=== PATIENT | female | born 1985 | race African-American/Black ===

== ENCOUNTER 2017-01-18 20:41 | Emergency (ER) | payer OTHER ==
[2017-01-18 21:20] VITALS: BP 146/74; PULSE 94; TEMP 99.8; BMI 60.2
[2017-01-18] MEDS ORDERED: CEPHALEXIN MONOHYDRATE 500 MG CAPSULE (UD) PO ONE (22:58)
[2017-01-18] MEDS ORDERED: SULFAMETHOXAZOLE/TRIMETHOPRIM 800MG/160MG D.S. TABLET PO ONE (22:58)
[2017-01-18] MEDS ORDERED: IBUPROFEN 600 MG TABLET (FP) PO ONE ×2 (22:58→23:15)
--- NOTE | 2017-01-18 23:02 | PDOC ---
[id number]: No Limitations - History of Present Illness Initial Comments: 01/18/17 23:11 The patient is a 31 year old female, with a significant past medical history obesity, DVT (RLE, April 2016) and cholecystitis, who presents to the emergency department with a worsening abscess to the left lower back for the past 5 days. The patient reports fever and chills today. A coworker took her temperature at work today, it was found to be 101. The patient reports taking Tylenol for the fever, with some relief. The patient denies nausea or vomiting. Allergies: None reported. Past Surgical History: Cholecystectomy. Social History: Non smoker. Denies alcohol or drug use. PCP: Dr. Bhavya Hernadez <Rosemary Colon - Last Filed: 01/18/17 23:12> - General History Source: Patient Exam Limitations: No Limitations <Hany Doran - Last Filed: 01/19/17 11:47> - General Chief Complaint: Wound Stated Complaint: ABCESS BOIL/FEVER Time Seen by Provider: 01/18/17 21:16 Past History <Rosemary Colon - Last Filed: 01/18/17 23:12> - Past Medical History Anemia: Yes Suicide Attempt (Hx): No - Surgical History Cholecystectomy: Yes - Immunization History Td Vaccination: Yes - Psycho/Social/Smoking Cessation Hx Anxiety: No Suicidal Ideation: No Smoking Status: No Smoking History: Never smoked Have you smoked in the past 12 months: No Number of Cigarettes Smoked Daily: 0 Information on smoking cessation initiated: No Hx Alcohol Use: No Drug/Substance Use Hx: No Substance Use Type: None <Hany Doran - Last Filed: 01/19/17 11:47> - Past Medical History Allergies/Adverse Reactions: Allergies Allergy/AdvReac Type Severity Reaction Status Date / Time No Known Allergies Allergy Verified 01/18/17 21:20 Home Medications: Ambulatory Orders Cephalexin [Keflex] 500 mg PO Q6H #28 capsule 01/18/17 Sulfamethoxazole/Trimethoprim [Bactrim Ds -] 1 tab PO BID #14 tablet 01/18/17 Review of Systems - Review of Systems Able to Perform ROS?: Yes Comments:: 01/18/17 23:10 GENERAL/CONSTITUTIONAL: +Fever, chills. No weakness. HEAD, EYES, EARS, NOSE AND THROAT: No change in vision. No ear pain or discharge. No sore throat. CARDIOVASCULAR: No chest pain or shortness of breath. RESPIRATORY: No cough, wheezing, or hemoptysis. GASTROINTESTINAL: No nausea, vomiting, diarrhea or constipation. GENITOURINARY: No dysuria, frequency, or change in urination. MUSCULOSKELETAL: No joint or muscle swelling or pain. No neck or back pain. SKIN: +Abscess to the left lower back. No rash. NEUROLOGIC: No headache, vertigo, loss of consciousness, or change in strength/ sensation. ENDOCRINE: No increased thirst. No abnormal weight change. HEMATOLOGIC/LYMPHATIC: No anemia, easy bleeding, or history of blood clots. ALLERGIC/IMMUNOLOGIC: No hives or skin allergy. <Rosemary Colon - Last Filed: 01/18/17 23:12> *Physical Exam - Vital Signs Last Vital Signs Temp Pulse Resp BP Pulse Ox 99.8 F H 94 H 20 146/74 99 01/18/17 21:15 01/18/17 21:15 01/18/17 21:15 01/18/17 21:15 01/18/17 21:15 - Physical Exam Comments: 01/18/17 23:09 GENERAL: Obese. Awake, alert, and fully oriented, in no acute distress. HEAD: No signs of trauma. EYES: PERRLA, EOMI, sclera anicteric, conjunctiva clear. ENT: Auricles normal inspection, hearing grossly normal, nares patent, oropharynx clear without exudates. Moist mucosa. NECK: Normal ROM, supple, no lymphadenopathy, JVD, or masses. LUNGS: Breath sounds equal, clear to auscultation bilaterally. No wheezes, and no crackles. HEART: Regular rate and rhythm, normal S1 and S2, no murmurs, rubs or gallops. ABDOMEN: Soft, nontender, normoactive bowel sounds. No guarding, no rebound. No masses. EXTREMITIES: Normal range of motion, no edema. No clubbing or cyanosis. No cords , erythema, or tenderness. NEUROLOGICAL: Cranial nerves II through XII intact. Normal speech, normal gait. SKIN: Left lower back, 3cm x 3cm area of induration and fluctuance, tender to palpation. No overlying erythema. Warm, dry, normal turgor, no rashes noted. <Rosemary Colon - Last Filed: 01/18/17 23:12> - Vital Signs Last Vital Signs Temp Pulse Resp BP Pulse Ox 99.8 F H 94 H 20 146/74 99 01/18/17 21:15 01/18/17 21:15 01/18/17 21:15 01/18/17 21:15 01/18/17 21:15 <Hany Doran - Last Filed: 01/19/17 11:47> Procedures - Incision and Drainage I&D Site: Left: Other (Back) Anesthesia: 1% Lidocaine Volume(ml): 2 Blade Size: 11 Attempts: 1 Iodinated Packin/2 in Complications: none Progress: 01/19/17 11:46 Wound site cleansed with alcohol prior to incision. <Hany Doran - Last Filed: 01/19/17 11:47> Medical Decision Making - Medical Decision Making 01/18/17 23:02 A portion of this note was documented by scribe services under my direction. I have reviewed the details of the note, within reason, and agree with the documentation with the following case summary and management plan written by me. Patient treated in the ED. Nursing notes are reviewed and incorporated into the medical decision-making. Vital signs reviewed. Peripheral IV access obtained by the nurse, laboratory studies are drawn and sent, reviewed and interpreted by myself. Vital Signs Temp Pulse Resp BP Pulse Ox 99.8 F H 94 H 20 146/74 99 01/18/17 21:15 01/18/17 21:15 01/18/17 21:15 01/18/17 21:15 01/18/17 21:15 31-year-old female with history of obesity, cholecystectomy presents with left lower back abscess. Patient noticed in last several days of a small bump that is increasingly more painful. Today, should a temperature 100.1 degrees. Came into the ED for evaluation. With patient's consent, 1% lidocaine without epinephrine was infused locally. Proximal to 2 mL were utilized. With an 11 blade, a 1 certainly decision was made with approximately 4 mL of purulent drainage. Wound was packed with iodine packing. Cover with gauze. Given the fevers, we'll initiate Bactrim and Keflex. I instructed the patient to return to the ER in 2 days for wound check. Return precautions given. I checked the patient to leave the packing in. Patient verbalized understanding and agrees with plan. I discussed the physical exam findings, ancillary test results and final diagnoses with the patient. I answered all of the patient's questions. The patient was satisfied with the care received and felt comfortable with the discharge plan and treatment plan. The patient will call their primary care physician within 24 hours to arrange follow-up and will return to the Emergency Department with any new, persistant or worsening symptoms. <Hany Doran - Last Filed: 01/19/17 11:47> *DC/Admit/Observation/Transfer - Attestations Scribe Attestion: 01/18/17 23:08 Documentation prepared by Rosemary Colon, acting as biomedical technician for Hany Doran MD. <Rosemary Colon - Last Filed: 01/18/17 23:12> - Discharge Dispostion Admit: No <Hany oDran - Last Filed: 01/19/17 11:47> Diagnosis at time of Disposition: Abscess - Discharge Dispostion Disposition: HOME Condition at time of disposition: Good - Prescriptions Prescriptions: Sulfamethoxazole/Trimethoprim [Bactrim Ds -] 1 tab PO BID #14 tablet Cephalexin [Keflex] 500 mg PO Q6H #28 capsule - Referrals Referrals: Bhavya Hernadez MD [Primary Care Provider] - - Patient Instructions Printed Discharge Instructions: DI for Skin Abscess Additional Instructions: Take both antibiotics (keflex every 6 hours and bactrim every 12 hours) for the next week. Take 600 mg ibuprofen every 6 hours as needed for pain. Please return to the ER in 2 days for wound check. You may come into the ER and show them these papers.
[2017-01-18] MEDS ORDERED: CEPHALEXIN MONOHYDRATE 250 MG CAPSULE (FP) ONE (23:16)
[2017-01-18] MEDS ORDERED: SULFAMETHOXAZOLE/TRIMETHOPRIM 800MG/160MG D.S. TABLET ONE (23:17)
== END 2017-01-18 23:20 | disposition home or self-care (01) ==
LOC: JER 20:41 → JERFT 20:41 → SUPCPDRO 20:41 → JER 23:20
DX: L02.212 Cutaneous abscess of back [any part, except buttock and flank] (principal); Z86.718 Personal history of other venous thrombosis and embolism; E66.01 Morbid (severe) obesity due to excess calories; Z68.44 Body mass index [BMI] 60.0-69.9, adult
CPT/HCPCS: 87070; 87186; 87205; 99282-25

== ENCOUNTER 2017-01-20 14:21 | Emergency (ER) | payer OTHER ==
[2017-01-20 14:59] VITALS: BP 132/70; PULSE 75; TEMP 97.3; BMI 59.9
--- NOTE | 2017-01-20 15:29 | PDOC ---
Suture Removal/Wound Check HPI - History of Present Illness Chief Complaint: Revisit,Wound Recheck Stated Complaint: WOUND CHECK Time Seen by Provider: 01/20/17 14:59 History Source: Yes: Patient Exam Limitations: Yes: No Limitations Treated at: [facility] Date of Last ED visit: 01/18/17 - Previous ED Treatment Type of procedure performed on last visit: Yes: I&D of Abscess Tetanus Immunization: Yes: Up to Date Antibiotics Prescribed: Yes Past History - Past Medical History Allergies/Adverse Reactions: Allergies No Known Allergies Allergy (Verified 01/20/17 14:55) Home Medications: Ambulatory Orders Cephalexin [Keflex] 500 mg PO Q6H #28 capsule 01/18/17 Sulfamethoxazole/Trimethoprim [Bactrim Ds -] 1 tab PO BID #14 tablet 01/18/17 Oxycodone HCl/Acetaminophen [Percocet 5-325 mg Tablet] 1 - 2 tab PO Q6H PRN #10 tab MDD 6 01/20/17 General: Yes: other (obesity) - Family History Significant Family History: Yes: diabetes, hypertension - Reproductive History LMP: 03/02/12 - Social History Smoking History: No Smoking Status: Never smoked Number of Ciarettes Per Day: 0 Suture Removal/Wound Check PE - Physical Exam Laceration/Wound Check Symptoms: reports: Pain (5/10) Pain Intensity: 5 Current Severity Level: Moderate Maximum Severity Level: Severe Location of Laceration/Wound: right: Back (middle of back with packing in place s/p abscess drained) Comments: 01/20/17 15:25 middle of back with packing in place s/p abscess , draining small amount yellow pus . no redness or surrounding fluctuance. mild surrounding induration. 01/20/17 15:30 Medical Decision Making - Medical Decision Making 01/20/17 15:25 cc: wound check I&D abscess 2 days ago well healing , yellow scant drainage noted will leave packing in and have pt follow up in 2 days with PMD or ER to remove continue antibioitics and will prescribe percocet for pain severe at night states pat. pt agrees with the plan all questions asked and answered at discharge. 01/20/17 15:31 *DC/Admit/Observation/Transfer Diagnosis at time of Disposition: Visit for wound check - Prescriptions Prescriptions: Oxycodone HCl/Acetaminophen [Percocet 5-325 mg Tablet] 1 - 2 tab PO Q6H PRN #10 tab MDD 6 PRN Reason: Severe Pain - Referrals Referrals: Bhavya Hernadez MD [Primary Care Provider] - - Patient Instructions Additional Instructions: follow up with in 2 days for packing removal or return to ER continue antibiotics take percocet for severe pain take motrin for mild to moderate pain as needed
== END 2017-01-20 15:41 | disposition home or self-care (01) ==
LOC: JERFT 14:21
DX: Z09 Encounter for follow-up examination after completed treatment for conditions other than malignant neoplasm (principal)
CPT/HCPCS: 99281-25

== ENCOUNTER 2017-05-23 16:27 | Inpatient (IN) | payer OTHER ==
[2017-05-23 16:33] VITALS: BMI 59.5
--- NOTE | 2017-05-23 16:43 | PDOC ---
History of Present Illness - History of Present Illness Initial Comments: 05/23/17 18:03 Patient is a 31 year old female with significant medical hx of obesity and DVT ( RLE) who is presenting to the ED with right lower extremity swelling and pain and one day of shortness of breath. Patient states she's been having several weeks of intermittent swelling and pain to her right lower extremity from her ankle up to her knee. The patient also complains of shortness of breath that began at 4 am today. Her shortness of breath worsens with exertion, specifically walking short distances. The patient also endorses chills and headache that started today. Denies chest pain, lightheadedness, weakness, nausea, vomiting, diarrhea, or diaphoresis. Patient states she stopped seeing her PCP and taking her lovenox for DVT in 2015. Allergies: NKDA Past Surgical History: Cholecystectomy Social History: Denies tobacco, alcohol or drug use. PCP: Bhavya Hernadez MD (hasn't seen PCP since 07/2016) <Cori Solorio - Last Filed: 05/23/17 23:40> <Mckinley Lanier - Last Filed: 05/24/17 00:30> - General Chief Complaint: Shortness of Breath Stated Complaint: LEG PAIN,SHORTNESS OF BREATH Time Seen by Provider: 05/23/17 16:42 Past History <Cori Solorio - Last Filed: 05/23/17 23:40> - Past Medical History Anemia: Yes Suicide Attempt (Hx): No Other medical history: DVT - Surgical History Cholecystectomy: Yes - Immunization History Td Vaccination: Yes - Psycho/Social/Smoking Cessation Hx Anxiety: No Suicidal Ideation: No Smoking Status: No Smoking History: Never smoked Have you smoked in the past 12 months: No Number of Cigarettes Smoked Daily: 0 Information on smoking cessation initiated: No Hx Alcohol Use: No Drug/Substance Use Hx: No Substance Use Type: None <Mckinley Lanier - Last Filed: 05/24/17 00:30> - Past Medical History Allergies/Adverse Reactions: Allergies Allergy/AdvReac Type Severity Reaction Status Date / Time No Known Allergies Allergy Verified 05/23/17 16:32 Home Medications: Ambulatory Orders NK [No Known Home Medication] 05/23/17 Review of Systems - Review of Systems Comments:: 05/23/17 18:11 CONSTITUTIONAL: Chills; No fever, no fatigue EYES: No visual changes ENT: No ear pain, no sore throat CARDIOVASCULAR: No chest pain, no palpitations RESPIRATORY: SOB; No cough GI: No abdominal pain, no nausea, no vomiting, no constipation, no diarrhea GENITOURINARY: No dysuria, no frequency, no hematuria MUSKULOSKELETAL: RLE pain and swelling; No backpain, no joint pain, no myalgias SKIN: No rash NEURO: Headache <Cori Solorio - Last Filed: 05/23/17 23:40> *Physical Exam - Vital Signs Last Vital Signs Temp Pulse Resp BP Pulse Ox 100 F H 120 H 19 112/62 97 05/23/17 16:30 05/23/17 16:30 05/23/17 16:30 05/23/17 16:30 05/23/17 16:30 - Physical Exam Comments: 05/23/17 18:12 CONSTITUTIONAL: Morbidly obese; in no apparent distress HEAD: Normocephalic; atraumatic EYES: PERRL; EOM intact ENMT: External appears normal; normal oropharynx NECK: Supple; non-tender; no cervical lymphadenopathy CARD: Tachycardic. Normal S1, S2; no murmurs, rubs, or gallops RESP: Normal chest excursion with respiration; breath sounds clear and equal bilaterally; no wheezes, rhonchi, or rales ABD: Soft, non-distended; non-tender; no palpable organomegaly, no palpable hernias EXT: RLE +1 pitting edema; RLE significantly larger than the left by 30%; Normal ROM in all four extremities; non-tender to palpation; distal pulses intact SKIN: Warm, dry, no rash NEURO: No focal neurological deficiencies. <Cori Solorio - Last Filed: 05/23/17 23:40> - Vital Signs Last Vital Signs Temp Pulse Resp BP Pulse Ox 100 F H 120 H 19 112/62 97 05/23/17 16:30 05/23/17 16:30 05/23/17 16:30 05/23/17 16:30 05/23/17 16:30 <Mckinley Lanier - Last Filed: 05/24/17 00:30> ED Treatment Course - LABORATORY CBC & Chemistry Diagram: 05/23/17 17:00 05/23/17 17:00 - ADDITIONAL ORDERS Additional order review: Laboratory Results 05/23/17 05/23/17 05/23/17 17:00 17:00 17:00 INR 1.20 H D-Dimer 385 H Sodium 140 Potassium 3.9 Chloride 102 Carbon Dioxide 28 Anion Gap 10 BUN 11 Creatinine 1.2 H D Creat Clearance w eGFR 52.75 Random Glucose 90 Calcium 8.6 Total Bilirubin 0.5 D AST 14 L D ALT 15 Alkaline Phosphatase 55 Creatine Kinase 100 Troponin I < 0.02 Total Protein 8.1 Albumin 3.3 L Serum , Qual Negative 05/23/17 17:00 RBC 4.22 MCV 81.8 MCHC 32.0 RDW 16.1 H MPV 8.2 Neutrophils % 76.0 D Lymphocytes % 15.0 D Monocytes % 4.7 Eosinophils % 3.7 Basophils % 0.6 - RADIOLOGY Radiograph Interpretation: 05/23/17 21:[address] Impression: No definite CT evidence of pulmonary embolism is identified. Reported By: Derrell Ybarra MD Vascular Study Impression: No DVT is identified involving the right leg. Please see discussion. Reported By: Derrell Ybarra MD - Medications Given in the ED: ED Medications Discontinued Medications Generic Name Dose Route Start Last Admin Trade Name Freq PRN Reason Stop Dose Admin Morphine Sulfate 4 mg 05/23/17 17:47 05/23/17 17:48 Morphine Injection - IVPUSH 05/23/17 17:48 4 mg ONCE ONE Administration <Cori Solorio - Last Filed: 05/23/17 23:40> - LABORATORY CBC & Chemistry Diagram: 05/23/17 17:00 05/23/17 17:00 <Mckinley Lanier - Last Filed: 05/24/17 00:30> Medical Decision Making - Medical Decision Making 05/23/17 17:05 pt with hx/o dvt not on anti-coagulation presents with sob, leg pain/edema, and tachycardia. high index of suspicion for PE. will administer lovenox-150mg sq. will obtain US doppler/ CT chest. [facility] [place] admission. 05/24/17 00:27 Patient reassessed. Patient is resting comfortably with a decreased heart rate of 102. Right lower extremity Doppler ultrasound shows no evidence of acute DVT. Patient's d-dimer is noted to be elevated at 385. CT of chest with IV contrast reveals no evidence of pulmonary embolism within the main pulmonary arteries all within the subsegmental pulmonary arteries. Given that patient is at high risk for PE, she received Lovenox immediately upon arrival. At this time , I believe patient will require admission to telemetry further evaluation and possible VQ scan to determine presence or absence of pulmonary emboli distal to the subsegmental arteries. Patient also may require a cardiac evaluation. Case discussed with Dr. Ann. He agrees with the plan of care. <Mckinley Lanier - Last Filed: 05/24/17 00:30> *DC/Admit/Observation/Transfer - Attestations Scribe Attestion: 05/23/17 18:14 Documentation prepared by Cori Solorio, acting as medical record technician for Mckinley Lanier MD. <Cori Solorio - Last Filed: 05/23/17 23:40> - Discharge Dispostion Admit: Yes <Mckinley Lanier - Last Filed: 05/24/17 00:30> Diagnosis at time of Disposition: Sinus tachycardia Dyspnea Qualifiers: Dyspnea type: unspecified Qualified Code(s): R06.00 - Dyspnea, unspecified - Discharge Dispostion Condition at time of disposition: Fair - Referrals Referrals: Bhavya Hrenadez MD [Primary Care Provider] -
[2017-05-23] MEDS ORDERED: ENOXAPARIN NA (PORCINE) 100 MG/1 ML DISP.SYRIN SQ ONE (17:05)
[2017-05-23] MEDS ORDERED: ENOXAPARIN NA (PORCINE) 60 MG/0.6 ML DISP.SYRIN SQ ONE (17:06)
[2017-05-23 17:10] LABS: BASOPHIL 0.6 % (0-2.0); EOSINOPHIL 3.7 % (0-4.5); MCH 26.2 pg (25.7-33.7); MEAN CELL VOLUME 81.8 fl (80-96); MEAN PLT VOLUME 8.2 fl (7.5-11.1); PLATELET COUNT 333 K/MM3 (134-434); RDW 16.1 % (11.6-15.6); WHITE BLOOD COUNT 8.8 K/mm3 (4.0-10.0)
[2017-05-23] MEDS ORDERED: ENOXAPARIN NA (PORCINE) 120 MG/0.8 ML DISP.SYRIN SQ SCH (17:15)
[2017-05-23 17:20] LABS: INR 1.2 (0.82-1.09); PROTHROMBIN TIME (PATIENT) 13.3 SEC (9.98-11.88)
[2017-05-23 17:37] LABS: ALBUMIN 3.3 g/dl (3.4-5.0); ANION GAP 10 (8-16); CALCIUM 8.6 mg/dL (8.5-10.1); CO2 28 mmol/L (21-32); CREATININE 1.2 mg/dL (0.55-1.02); GLUCOSE,RANDOM 90 mg/dL (74-106); SGOT/AST 14 U/L (15-37)
[2017-05-23] MEDS ORDERED: morphine CARPU-JECT 4 MG/1 ML DISP.SYRIN IVPUSH ONE (17:47)
[2017-05-23] MEDS ORDERED: morphine CARPU-JECT 4 MG/1 ML DISP.SYRIN ONE (17:48)
[2017-05-23 17:50] LABS: ALK PHOS 55 U/L (45-117); BILIRUBIN,TOTAL 0.5 mg/dL (0.2-1.0); SGPT/ALT 15 U/L (12-78); TOT PROT 8.1 g/dl (6.4-8.2); TROPONIN I < 0.02 ng/ml (0.00-0.05)
[2017-05-23] MEDS ORDERED: methylPREDNISolone NA SUCC 125 MG/2 ML VIAL ONE (19:12)
[2017-05-23] MEDS ORDERED: EPINEPHrine/PF 1 MG/1 ML (1:1,000) AMPULE ONE (19:13)
[2017-05-23] MEDS ORDERED: OXYCODONE/APAP 5/325MG COMBO TABLET PO ONE (20:13)
[2017-05-23] MEDS ORDERED: OXYCODONE/APAP 5/325MG COMBO TABLET ONE (20:27)
[2017-05-24] MEDS ORDERED: ACETAMINOPHEN 325 MG TABLET (FP) PO PRN (07:32)
[2017-05-24] MEDS ORDERED: oxyCODONE HCL 5 MG TABLET PO PRN (07:32)
--- NOTE | 2017-05-24 07:37 | HP ---
Admitting History and Physical - Primary Care Physician PCP: Bhavya Hernadez - Admission Chief Complaint: pain in leg History of Present Illness: 05/23/17 18:03 Patient is a 31 year old female with significant medical hx of obesity and DVT ( RLE) who is presenting to the ED with right lower extremity swelling and pain and one day of shortness of breath. Patient states she's been having several weeks of intermittent swelling and pain to her right lower extremity from her ankle up to her knee. The patient also complains of shortness of breath that began at 4 am today. Her shortness of breath worsens with exertion, specifically walking short distances. . Denies chest pain, lightheadedness, weakness, nausea, vomiting, diarrhea, or diaphoresis. Patient states she stopped taking her lovenox for DVT in 07/2016.--says completed 3 months as advised Allergies: NKDA Past Surgical History: Cholecystectomy Social History: Denies tobacco, alcohol or drug use. Work up was -ve for pe as well as dvt Pt kept under observation as er doc was still concerned about pe pt got theraeutic dose of lovenox case was discussed with er physician last night pt seen/ examined today comfortable wants to go home denies cp/ sob/ abd pain History Source: Patient Limitations to Obtaining History: No Limitations - Past Medical History Musculoskeletal: Yes: Other (rlex pain) - Smoking History Smoking history: Never smoked Have you smoked in the past 12 months: No Aproximately how many cigarettes per day: 0 - Alcohol/Substance Use Hx Alcohol Use: No <Ismael Ann - Last Filed: 05/27/17 08:09> Home Medications <Chrystal Alexander - Last Filed: 05/24/17 09:30> <Ismael Ann - Last Filed: 05/27/17 08:09> - Allergies Allergies/Adverse Reactions: Allergies Allergy/AdvReac Type Severity Reaction Status Date / Time No Known Allergies Allergy Verified 05/23/17 16:32 - Home Medications Home Medications: Ambulatory Orders NK [No Known Home Medication] 05/23/17 Family Disease History - Family Disease History Family History: Unremarkable <Ismael Ann - Last Filed: 05/27/17 08:09> Review of Systems Unable to obtain ROS, reason: see [facility] <Ismael Ann - Last Filed: 05/27/17 08:09> Physical Examination Vital Signs: Vital Signs Temperature 98.8 F 05/23/17 20:30 Pulse Rate 92 H 05/24/17 06:56 Respiratory Rate 18 05/24/17 06:56 Blood Pressure 110/67 05/24/17 06:56 O2 Sat by Pulse Oximetry (%) 97 05/24/17 06:56 <Chrystal Alexander - Last Filed: 05/24/17 09:30> Vital Signs: Vital Signs Temperature 98.8 F 05/23/17 20:30 Pulse Rate 92 H 05/24/17 06:56 Respiratory Rate 18 05/24/17 06:56 Blood Pressure 110/67 05/24/17 06:56 O2 Sat by Pulse Oximetry (%) 97 05/24/17 06:56 Constitutional: Yes: No Distress, Calm, Obese Eyes: Yes: Conjunctiva Clear Neck: Yes: Supple Cardiovascular: Yes: Regular Rate and Rhythm Respiratory: Yes: CTA Bilaterally Gastrointestinal: Yes: Soft, Abdomen, Obese Edema: RLE: 1+ Peripheral Pulses WNL: Yes Neurological: Yes: Alert Psychiatric: Yes: Alert <Ismael Ann - Last Filed: 05/27/17 08:09> Imaging - Results Chest X-ray: Report Reviewed Cat Scan: Report Reviewed Ultrasound: Report Reviewed EKG: Report Reviewed <Ismael Ann - Last Filed: 05/27/17 08:09> Problem List - Problems (1) Morbid obesity Code(s): E66.01 - MORBID (SEVERE) OBESITY DUE TO EXCESS CALORIES (2) Dyspnea Code(s): R06.00 - DYSPNEA, UNSPECIFIED Qualifiers: Dyspnea type: unspecified Qualified Code(s): R06.00 - Dyspnea, unspecified <Ismael Ann - Last Filed: 05/27/17 08:09> Assessment/Plan work up -ve for pe I dont think v/q scan will help-- ct chest -ve await pulmonary / cardiology eval as well as hematology echo will d/c later if cleared by pulmonary Pt to follow in office in one week pt in agreement will follow <Ismael Ann - Last Filed: 05/27/17 08:09>
--- NOTE | 2017-05-24 08:11 | CON.CARD ---
Consult Consult Specialty:: Cardiology Referred by:: Dr. Ann Reason for Consultation:: SOB - History of Present Illness Chief Complaint: SOB, RLE pain History of Present Illness: 31 year old woman with a history of obesity, RLE DVT stopped taking Lovenox 2015, came to ER with c/o RLE pain and swelling for several weeks and 1 day history of SOB. Pt states that aside from her RLE pain and intermittent swelling she has been feeling well up until yesterday. She states that she thinks she has a cold, describes low grade fever, nasal congestion, and sob that started yesterday. denies any chest pain, no palpitations. no pnd, orthopnea. no lightheadedness or dizziness, no syncope or near syncope. - History Source History Provided By: Patient, Medical Record Limitations to Obtaining History: No Limitations - Past Medical History Cardio/Vascular: Yes: Deep Vein Thrombosis Musculoskeletal: Yes: Other (rlex pain) - Alcohol/Substance Use Hx Alcohol Use: No - Smoking History Smoking history: Never smoked Have you smoked in the past 12 months: No Aproximately how many cigarettes per day: 0 - Social History ADL: Independent History of Recent Travel: No Home Medications - Allergies Allergies/Adverse Reactions: Allergies Allergy/AdvReac Type Severity Reaction Status Date / Time No Known Allergies Allergy Verified 05/23/17 16:32 - Home Medications Home Medications: Ambulatory Orders NK [No Known Home Medication] 05/23/17 Family Disease History - Family Disease History Family History: Denies Review of Systems - Review of Systems Constitutional: reports: Fever. denies: No Symptoms, Chills, Diaphoresis, Lethargy, Loss of Appetite, Malaise, Night Sweats, Unintentional Wgt. Loss, Weakness, Other Eyes: denies: No Symptoms, Blind Spots, Blurred Vision, Double Vision, Eye Pain , Floaters, Photophobia, Recent Change in Vision, Other HENT: denies: No Symptoms, Difficult Swallowing, Ear Discharge, Ear Pain, Epistaxis, Gingival Bleeding, Hearing Loss, Mouth Swelling, Nasal Congestion, Ocular Prosthesis, Throat Pain, Toothache, Ringing in Ears, Other Neck: denies: No Symptoms, Decreased ROM, Lumps, Pain on Movement, Stiffness, Swollen Glands, Tenderness, Other Cardiovascular: reports: Edema, Shortness of Breath. denies: No Symptoms, Chest Pain, Palpitations, Other Respiratory: reports: Exercise Intolerance, SOB, SOB on Exertion. denies: No Symptoms, Cough, Hemoptysis, Orthopnea, PND, Snoring, Wheezing, Other Gastrointestinal: denies: No Symptoms, Abdominal Pain, Bloating, Constipation, Diarrhea, Dysphagia, Indigestion, Melena, Nausea, Rectal Bleeding, Vomiting, Vomiting Blood, Other Genitourinary: denies: No Symptoms, Burning, Discharge, Dysuria, Flank Pain, Frequency, Hematuria, Incontinence, Lesions, Menses, Pain, Testicular Mass, Testicular Pain, Testicular Swelling, Urgency, Vaginal Bleeding, Other Breasts: denies: No Symptoms Reported, See HPI, Breast Implants, Discharge from Nipple, Lumps, Pain, Skin Changes, Other Musculoskeletal: denies: No Symptoms, Back Pain, Crepitus, Decreased ROM, Extremity Pain, Joint Pain, Joint Swelling, Muscle Pain, Muscle Cramps, Muscle Weakness, Other Integumentary: denies: No Symptoms, Blister, Bruising, Change in Color, Eczema, Erythema, Incision, Lesions, Lump, Pallor, Pruritis, Rash, Wound, Other Neurological: denies: No Symptoms, Change in LOC, Change in Speech, Confusion, Dizziness, Headache, Incoordination, Numbness, Parasthesia, Pre-Existing Deficit , Seizure, Syncope, Tremors, Unsteady Gait, Weakness, Other Endocrine: denies: No Symptoms, Excessive Sweating, Flushing, Increased Hunger, Increased Thirst, Intolerance to Cold, Intolerance to Heat, Unexplained Weight Gain, Unexplained Weight Loss, Other Hematology/Lymphatic: denies: No Symptoms, Easily Bruised, Excessive Bleeding, Swollen Glands, Other Psychiatric: denies: No Symptoms, Altered Sleep Pattern, Anxiety, Depression, Hallucinations, Panic, Paranoia, Suicidal, Other Vital Signs: Vital Signs Temperature 98.8 F 05/23/17 20:30 Pulse Rate 92 H 05/24/17 06:56 Respiratory Rate 18 05/24/17 06:56 Blood Pressure 110/67 05/24/17 06:56 O2 Sat by Pulse Oximetry (%) 97 05/24/17 06:56 Constitutional: Yes: No Distress, Calm, Obese Eyes: Yes: WNL, Conjunctiva Clear, EOM Intact, PERRL HENT: Yes: WNL, Atraumatic, Normocephalic Neck: Yes: WNL, Supple, Trachea Midline Respiratory: Yes: WNL, Regular, CTA Bilaterally. No: Rales, Rhonchi, Wheezes Gastrointestinal: Yes: WNL, Normal Bowel Sounds, Soft. No: Distention, Tenderness Renal/: Yes: WNL Cardiovascular: Yes: WNL, Regular Rate and Rhythm. No: Bradycardia, Tachycardia , Pulse Irregular, Gallop, Rub, Varicosities JVD: No Carotid Bruit: No PMI: Non-Displaced Heart Sounds: Yes: S1, S2. No: Split S2, S3, S4, Clicks, Gallop, Rub, Bruit Murmur: No: Systolic Murmur, Diastolic Murmur Musculoskeletal: Yes: Muscle Pain Extremities: Yes: WNL Edema: LLE: Trace, RLE: Trace Peripheral Pulses WNL: Yes Peripheral Pulses: 2+ Left Doralis Pedis, 2+ Right Dorsalis Pedis Integumentary: Yes: WNL Neurological: Yes: WNL, Alert, Oriented, Cran Nerves II-XII Intact ...Motor Strength: WNL Psychiatric: Yes: WNL, Alert, Oriented - Other Data Labs, Other Data: INR, PTT INR 1.20 (0.82-1.09) H 05/23/17 17:00 ekg-sinus tach 110bpm, LVH, no sig st abnl Echo: Report Reviewed, Image Reviewed Ejection Fraction %: LVEF > or = 40 % Imaging - Results Chest X-ray: Report Reviewed, Image Reviewed EKG: Report Reviewed, Image Reviewed Other: Report Reviewed, Image Reviewed Assessment/Plan 31 year old woman with a history of obesity, RLE DVT stopped taking Lovenox 2015, came to ER with c/o RLE pain and swelling for several weeks and 1 day history of SOB. Pt states that aside from her RLE pain and intermittent swelling she has been feeling well up until yesterday. She states that she thinks she has a cold, describes low grade fever, nasal congestion, and sob that started yesterday. denies any chest pain, no palpitations. no pnd, orthopnea. no lightheadedness or dizziness, no syncope or near syncope. SOB Pt reports feeling better, no longer sob states she had cold starting yesterday with low grade fever and nasal congestion , she believes this is what caused her symptoms, nasal congestion is appreciated on exam Lungs clear, does not appear in CHF, cardiac enzymes wnl CTA showed no definite PE Doppler LE showed no DVT Echo done and read by myself, grossly normal RV size and function, insuff TR to estimate RVSP, normal LV size and function, no sig valvular abnl, no pericardial effusion Pulmonary to evaluate, pt currently receiving Lovenox Pt was seen by Hematology in the past, DVT was felt to be provoked, but risk factors (obesity, sedentary lifestyle) felt to likely be a snf issue thus consideration for prolonged AC was given
[2017-05-24 14:25] VITALS: BP 112/62; PULSE 89; TEMP 98.6
--- NOTE | 2017-05-24 14:45 | PN ---
Progress Note (short form) - Note Progress Note: PULMONARY CONSULTATION DICTATED 05/24/17 IMP DYSPNEA ?ETIOLOGY, IMPROVED ? SECONDARY TO URI,+ H/O ASTHMA RLE DISCOMFORT IMPROVING H/O DVT LIKELY PROVOKED MORBID OBESITY R/O REBECA PLAN PFTS OUTPATIENT CONSIDER CHRONIC LOW DOSE AC FOR DVT PROPHYLAXIS SINCE PT IS A HIGH RISK SECONDARY TO SEDENTARY LIFESTYLE,MORBID OBESITY CONSIDER HEME EVALUATION CONSIDER SLEEP STUDIES OUTPATIENT DR WHARTON Problem List - Problems (1) DVT (deep venous thrombosis) Code(s): I82.409 - ACUTE EMBOLISM AND THOMBOS UNSP DEEP VN UNSP LOWER EXTREMITY Qualifiers: DVT location: lower extremity Affected thrombotic vein of extremity: popliteal Chronicity: acute Laterality: right Qualified Code(s): I82.431 - Acute embolism and thrombosis of right popliteal vein (2) Dyspnea Code(s): R06.00 - DYSPNEA, UNSPECIFIED Qualifiers: Dyspnea type: unspecified Qualified Code(s): R06.00 - Dyspnea, unspecified (3) Morbid obesity Code(s): E66.01 - MORBID (SEVERE) OBESITY DUE TO EXCESS CALORIES (4) H/O deep venous thrombosis Code(s): Z86.718 - PERSONAL HISTORY OF OTHER VENOUS THROMBOSIS AND EMBOLISM
--- NOTE | 2017-05-24 16:25 | DS ---
Physical Examination Vital Signs: Vital Signs Temperature 98.6 F 05/24/17 09:00 Pulse Rate 89 05/24/17 09:00 Respiratory Rate 16 05/24/17 09:00 Blood Pressure 112/62 05/24/17 09:00 O2 Sat by Pulse Oximetry (%) 98 05/24/17 09:00 Discharge Summary Reason For Visit: DYSPNEA SINUS TACHYCARDIA Current Active Problems DVT (deep venous thrombosis) (Acute) Dyspnea (Acute) H/O deep venous thrombosis (Acute) Morbid obesity (Acute) Sinus tachycardia (Acute) Hospital Course: see h and p - Instructions Referrals: Derrell Che MD [Staff Physician] - Bhavya Hernadez MD [Primary Care Provider] - - Home Medications Comprehensive Discharge Medication List: Ambulatory Orders NK [No Known Home Medication] 05/23/17
--- NOTE | 2017-05-24 17:19 | EKG ---
Test Reason : Blood Pressure : / mmHG Vent. Rate : 110 BPM Atrial Rate : 110 BPM P-R Int : 148 ms QRS Dur : 088 ms QT Int : 308 ms P-R-T Axes : 050 009 027 degrees QTc Int : 416 ms SINUS TACHYCARDIA MINIMAL VOLTAGE CRITERIA FOR LVH, MAY BE NORMAL VARIANT BORDERLINE ECG WHEN COMPARED WITH ECG OF 06-APR-2012 22:18, VENT. RATE HAS INCREASED BY 40 BPM Confirmed by MD KELLY, NEAL ([id number]) on 05/24/2017 5:19:31 PM Referred By: Confirmed By:NEAL MENDOZA MD
--- NOTE | 2017-05-24 20:15 | CONS ---
DATE OF CONSULTATION: 05/24/2017 PULMONARY CONSULTATION REFERRING PHYSICIAN: Ismael Ann MD HISTORY OF PRESENT ILLNESS: The patient is a 31-year-old black female with a past medical history of morbid obesity and history of right lower extremity DVT, felt to be provoked. She was on Lovenox and discontinued in July 2016. She is a nonsmoker. The patient was admitted to [facility] early today. She presented to [facility] with complaint of right lower extremity pain and swelling for several weeks, as well as a 1-day history of shortness of breath. The patient denied any complaints of chest pain, nausea, vomiting or diaphoresis. She denied any fever or chills. She denied any cough or hemoptysis. She is a nonsmoker. There is no apparent history of occupational exposure to chemical fumes. She denies any recent trauma to her lower extremity. She states that she felt that she may have a cold and she apparently described a low-grade fever on admission and some nasal congestion. She states that the shortness of breath started yesterday. She does have a remote history of asthma. She has never been intubated. She denies any oral contraceptive use. Apparently she had workup for her PE by Hematology, and the DVT was felt to be provoked. 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 So she is relatively sedentary. PAST MEDICAL HISTORY: Right lower extremity DVT, morbid obesity. REVIEW OF SYSTEMS: No orthopnea. No PND. No chest pain. No palpitations. No cough. No hemoptysis. Positive shortness of breath, which has resolved. Positive right lower extremity discomfort. CURRENT MEDICATIONS: Include Lovenox, oxycodone and Tylenol. PHYSICAL EXAMINATION: General: The patient is an obese female, awake, alert, in no acute distress. Vitals: She is afebrile. Blood pressure 112/62, respiratory rate 16. O2 saturation is 98% on room air. HEENT: Normocephalic, atraumatic. Neck: Supple. Heart: Regular S1, S2. Chest: Clear. Abdomen: Soft. Bowel sounds are positive. Extremities: No cyanosis or edema, but she does complain of some mild right calf discomfort. DIAGNOSTIC STUDIES: WBC 8.8; hemoglobin 11.0; hematocrit 34.5; platelet count 333,000. D-dimer 385. Chemistries - BUN 10, creatinine 1.2. UA is negative. Chest CT - no infiltrates, no effusions, no evidence of pulmonary emboli. Duplex of the lower extremities showed no evidence of DVT. Echocardiogram reveals normal left ventricular size and function. RV is not well-visualized, of normal size and function is normal. No evidence of pulmonary hypertension. IMPRESSION: 1. Dyspnea resolved, etiology to be determined. No evidence of pulmonary emboli. 2. Right lower extremity discomfort. 3. Morbid obesity. 4. History of right lower extremity deep venous thrombosis. PLAN: 1. Pulmonary function test as an outpatient. 2. Inhaled bronchodilators p.r.n. 3. Consider long-term low-dose anticoagulation as the patient is a high risk for recurrent DVT being she is morbidly obese as well as has a sedentary lifestyle in her occupation prolonged sitting. 4. Consider a sleep study as an outpatient to rule out possible obstructive sleep apnea, although the patient denies any history of excessive daytime sleeping, snoring or witnessed apneic episodes. LAYO WHARTON M.D. [id number]
== END 2017-05-24 15:50 | disposition home or self-care (01) | DRG 204 ==
LOC: JER 16:27 → JERBED 05-24 00:30 → UNDOADMIN 05-24 00:56 → JERBED 05-24 00:56
PROVIDERS: ADMIT Internal Medicine; ATTEND Internal Medicine
DX: R06.00 Dyspnea, unspecified (principal); Z68.43 Body mass index [BMI] 50.0-59.9, adult; J06.9 Acute upper respiratory infection, unspecified; E66.01 Morbid (severe) obesity due to excess calories; Z86.718 Personal history of other venous thrombosis and embolism; R00.0 Tachycardia, unspecified; J45.909 Unspecified asthma, uncomplicated
CPT/HCPCS: 36415; 71010-TC; 71260-TC; 80053; 82550; 84484; 84703; 85025; 85379; 85610; 93005; 93010; 93306-TC; 93971-TC; 99284-25

== ENCOUNTER 2017-09-18 13:01 | Emergency (ER) | payer OTHER ==
[2017-09-18 13:10] VITALS: BMI 57.7
--- NOTE | 2017-09-18 13:25 | PDOC ---
History of Present Illness - General Chief Complaint: Pain Stated Complaint: LT LEG PAIN, SWOLLEN Time Seen by Provider: 09/18/17 13:24 - History of Present Illness Initial Comments: 09/18/17 13:41 The patient is a 32 year old female with a history of DVT, obesity who presents for evaluation of left calf swelling and pain. The patient reports a 2 week history of left calf swelling and tenderness with associated difficulty walking that she states is similar to her prior DVT in her right leg. 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 She reports that she is not currently on any blood thinners, but was on lovanox in the past which she stopped over 1 year ago. She denies any SOB or chest pain as well. She denies fevers, chills, abdominal pain, or changes with urination or bowel movements. Past History - Past Medical History Allergies/Adverse Reactions: Allergies Allergy/AdvReac Type Severity Reaction Status Date / Time No Known Allergies Allergy Verified 09/18/17 13:10 Home Medications: Ambulatory Orders NK [No Known Home Medication] 05/23/17 Anemia: Yes Other medical history: DVT - Surgical History Cholecystectomy: Yes - Immunization History Td Vaccination: Yes - Suicide/Smoking/Psychosocial Hx Smoking Status: No Smoking History: Never smoked Have you smoked in the past 12 months: No Number of Cigarettes Smoked Daily: 0 Hx Alcohol Use: Yes (SOCIAL) Drug/Substance Use Hx: No Substance Use Type: None Review of Systems - Review of Systems Comments:: 09/18/17 13:45 Constitutional: No fevers, chills, fatigue, malaise HEENT: No Rhinorrhea, nasal congestion, Cardiovascular: No chest pain, syncope, palpitations, lightheadedness Respiratory: No Cough, SOB, Hemoptysis, Gastrointestinal: No Abdominal pain, Nausea, Vomiting, Constipation, Diarrhea, Melena Genitourinary: No Dysuria, Frequency, Urgency, Hesitancy, Hematuria, Flank pain Musculoskeletal: Left Calf swelling and pain. No Myalgia, arthralgia Skin: No rashes, bruising, pallor Neurologic: No Headache, Dizziness, Numbness, Weakness, or Tingling *Physical Exam - Vital Signs Last Vital Signs Temp Pulse Resp BP Pulse Ox 98.0 F 90 20 132/62 100 09/18/17 13:07 09/18/17 13:07 09/18/17 13:07 09/18/17 13:07 09/18/17 13:07 - Physical Exam Comments: 09/18/17 13:47 General Appearance: Nourished. No Apparent Distress HEENT: DARNELL, FRED. Respiratory/Chest: Lungs Clear, Normal Breath Sounds. No Crackles, Rales, Rhonchi, Wheezing Cardiovascular: Regular Rhythm, Regular Rate. No Murmur, Gallops, Rubs Gastrointestinal/Abdominal: Normal Bowel Sounds, Soft. No Guarding, Rebound, Tenderness Musculoskeletal: No CVA Tenderness Extremity: 1+ edema to the lower extremities bilaterally. Tenderness to palpation of the left calf. Normal Capillary Refill Integumentary: Normal Color, Dry, Warm Neurologic: Fully Oriented, Alert, Normal Mood/Affect, Normal Response, ED Treatment Course - LABORATORY CBC & Chemistry Diagram: 09/18/17 13:20 09/18/17 13:45 Medical Decision Making - Medical Decision Making 09/18/17 13:49 The patient is a 32 year old female with a history of DVT, obesity who presents for evaluation of left calf swelling and pain. Differential includes but is not limited to: DVT, Dependent edema, lymphedema, metabolic derangement. Given the patient's history of DVT with similar symptoms in the past to her prior DVT , we will obtain a lower extremity doppler to evaluate for DVT. We will also obtain a cbc, cmp, inr, ptt to evaluate for infectious or metabolic etiologies and evaluate her coagulation status. We will continue to monitor and reassess. 09/18/17 17:05 CBC, cmp, inr, ptt are unremarkable. DVT US is negative for DVT as read by our radiologist. We treated the patient's pain with toradol and she reports mild improvement. We are comfortable discharging the patient home with primary care follow up. We discussed the results and the plan with the patient who voiced understanding and is agreeable with the plan. *DC/Admit/Observation/Transfer Diagnosis at time of Disposition: Leg pain, left - Discharge Dispostion Disposition: HOME Condition at time of disposition: Improved Admit: No - Referrals Referrals: Bhavya Hernadez MD [Primary Care Provider] - - Patient Instructions Printed Discharge Instructions: DI for Leg Pain Additional Instructions: Please return to the ER if you experience concerning or worsening symptoms such as shortness of breath, chest pain, fevers, or chills. Please call to schedule a follow up appointment with your primary care provider to discuss your ER visit. You may use motrin at home for pain management and please raise your leg and ice to help mange your symptoms.
--- NOTE | 2017-09-18 13:29 | PDOC ---
Attending Attestation - Resident Resident Name: Adama Davis - ED Attending Attestation I have performed the following: I have examined & evaluated the patient, The case was reviewed & discussed with the resident, I agree w/resident's findings & plan, Exceptions are as noted - HPI HPI: 09/18/17 13:28 Leg Pain - Physicial Exam PE: 09/18/17 13:29 VSS NAD NV INTACT - Medical Decision Making 09/18/17 13:[address] Davis Assessment and Plan <Sharath Guardado - Last Filed: 09/18/17 13:28> - HPI HPI: 09/18/17 14:09 The patient is a 32 year old female, with a significant past medical history of DVT (last DVT in 2016, treated with lovenox but d/c since), who presents to the emergency department with 2 weeks of left calf swelling and pain. 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 She states her symptoms today are just like her experience with DVT in the past. She denies chest pain, shortness of breath, headache and dizziness. She denies fever, chills, nausea, vomit, diarrhea and constipation. She denies dysuria, frequency, urgency and hematuria. Allergies: NKDA - Physicial Exam PE: 09/18/17 14:10 GENERAL: Awake, alert, and fully oriented, in no acute distress HEAD: No signs of trauma EYES: PERRLA, EOMI, sclera anicteric, conjunctiva clear ENT: Auricles normal inspection, hearing grossly normal, nares patent, oropharynx clear without exudates. Moist mucosa NECK: Normal ROM, supple, no lymphadenopathy, JVD, or masses LUNGS: Breath sounds equal, clear to auscultation bilaterally. No wheezes, and no crackles HEART: Regular rate and rhythm, normal S1 and S2, no murmurs, rubs or gallops ABDOMEN: Soft, nontender, normoactive bowel sounds. No guarding, no rebound. No masses EXTREMITIES: (+) 1+ pitting edema bilaterally. Left calf TTP. Normal range of motion, No clubbing or cyanosis. No cords, erythema. NEUROLOGICAL: Cranial nerves II through XII grossly intact. Normal speech, normal gait SKIN: Warm, Dry, normal turgor, no rashes or lesions noted. - Medical Decision Making 09/18/17 14:11 Documentation prepared by Rena Carter, acting as senior medical director for Sharath Guardado DO <Rena Carter - Last Filed: 09/18/17 14:11>
[2017-09-18 14:00] LABS: BASOPHIL 0.6 % (0-2.0); EOSINOPHIL 4.9 % (0-4.5); MCH 26.3 pg (25.7-33.7); MCHC 32.6 g/dl (32.0-36.0); MEAN CELL VOLUME 80.7 fl (80-96); MEAN PLT VOLUME 7.2 fl (7.5-11.1); NEUTROPHILS 55.4 % (42.8-82.8); PLATELET COUNT 342 K/MM3 (134-434); RDW 15.2 % (11.6-15.6); WHITE BLOOD COUNT 7.9 K/mm3 (4.0-10.0)
[2017-09-18 14:31] LABS: INR 1.13 (0.82-1.09); PROTHROMBIN TIME (PATIENT) 12.8 SEC (9.98-11.88)
[2017-09-18 14:34] LABS: ACTIVATED PTT 27.5 SECONDS (26.9-34.4)
[2017-09-18 14:47] LABS: ALBUMIN 3.2 g/dl (3.4-5.0); ALK PHOS 59 U/L (45-117); ANION GAP 6 (8-16); BILIRUBIN,TOTAL 0.3 mg/dL (0.2-1.0); CALCIUM 8.5 mg/dL (8.5-10.1); CO2 31 mmol/L (21-32); CREATININE 0.8 mg/dL (0.55-1.02); GLUCOSE,RANDOM 118 mg/dL (74-106); SGOT/AST 9 U/L (15-37); SGPT/ALT 13 U/L (12-78); TOT PROT 7.9 g/dl (6.4-8.2)
[2017-09-18] MEDS ORDERED: KETOROLAC TROMETHAMINE 30 MG/1 ML VIAL IVPUSH ONE (15:50)
[2017-09-18] MEDS ORDERED: KETOROLAC TROMETHAMINE 30 MG/1 ML VIAL ONE (16:02)
[2017-09-18 17:32] VITALS: BP 139/76; PULSE 85; TEMP 98.1
== END 2017-09-18 17:33 | disposition home or self-care (01) ==
LOC: JER 13:01
PROC: 3E0333Z Introduction of Anti-inflammatory into Peripheral Vein, Percutaneous Approach (ICD-10-PCS; principal; 2017-09-18)
DX: M79.662 Pain in left lower leg (principal); Z86.718 Personal history of other venous thrombosis and embolism; E66.9 Obesity, unspecified; Z68.43 Body mass index [BMI] 50.0-59.9, adult
CPT/HCPCS: 36415; 80053; 85025; 85610; 85730; 93971-TC; 99284-25

== ENCOUNTER 2017-11-05 11:56 | Inpatient (IN) | payer OTHER ==
[2017-11-05 12:12] VITALS: BMI 56.5
[2017-11-05] MEDS ORDERED: ACETAMINOPHEN 500 MG TABLET (FP) PO ONE (13:53)
--- NOTE | 2017-11-05 13:53 | PDOC ---
History of Present Illness - General Chief Complaint: Pain Stated Complaint: LT LEG PAIN (PCP SENT) Time Seen by Provider: 11/05/17 13:47 History Source: Patient Exam Limitations: No Limitations - History of Present Illness Initial Comments: 11/05/17 13:[address] Ann to be evaluated for left lower extremity DVT. has had history of left leg pain for 2 months, was evaluated and discharged that same day. Patient has had persistent pain and was seen by Dr. Ann' s office today. Was recommended to come to the emergency department for further evaluation for possible DVT 11/05/17 13:58 11/05/17 15:52 Occurred: reports: other (x 2 months) Severity: reports: mild, moderate Pain Location: reports: lower extremity (left leg ) Method of Injury: Yes: unknown Associated Symptoms (Fall): denies symptoms Past History - Travel Traveled outside of the country in the last 30 days: No Close contact w/someone who was outside of country & ill: No - Past Medical History Allergies/Adverse Reactions: Allergies Allergy/AdvReac Type Severity Reaction Status Date / Time No Known Allergies Allergy Verified 11/05/17 12:08 Home Medications: Ambulatory Orders NK [No Known Home Medication] 05/23/17 Anemia: Yes COPD: No Other medical history: DVT RT LEG - Surgical History Cholecystectomy: Yes - Immunization History Td Vaccination: Yes - Suicide/Smoking/Psychosocial Hx Smoking Status: No Smoking History: Never smoked Have you smoked in the past 12 months: No Number of Cigarettes Smoked Daily: 0 Information on smoking cessation initiated: No Hx Alcohol Use: Yes (SOCIAL) Drug/Substance Use Hx: No Substance Use Type: None Trauma Specific PMHX - Complaint Specific PMHX Back Injury: Yes Neck Injury: No Review of Systems - Review of Systems Able to Perform ROS?: Yes Is the patient limited Monegasque proficient: Yes Constitutional: Yes: Symptoms Reported, See HPI HEENTM: Yes: See HPI. No: Symptoms Reported Respiratory: Yes: See HPI. No: Symptoms reported, Cough ABD/GI: No: Symptoms Reported Musculoskeletal: Yes: Symptoms Reported, See HPI, Muscle Pain (to left calf with minimal swelling , difficult to assess as patient is severely morbidly obese and bilateral legs appear almost equal. Reproduced tenderness at calf, neurovascular intact to foot but has pain reproduced with flexion/Homans sign), Other All Other Systems: Reviewed and Negative *Physical Exam - Vital Signs Last Vital Signs Temp Pulse Resp BP Pulse Ox 98.3 F 92 H 18 127/81 100 11/05/17 12:09 11/05/17 12:09 11/05/17 12:11/05/17 12:11/05/17 12:09 - Physical Exam General Appearance: Yes: Nourished (severely morbidly obese ), Appropriately Dressed, Apparent Distress, Mild Distress HEENT: positive: FRED, Normal ENT Inspection, TMs Normal, Pharynx Normal Neck: positive: Supple. negative: Tender Respiratory/Chest: positive: Lungs Clear Musculoskeletal: positive: Normal Inspection, Decreased Range of Motion (due to pain to left leg/ + ). negative: Muscle Spasm Extremity: positive: Normal Capillary Refill. negative: Normal Range of Motion (limited due to pain/ NV intact) Integumentary: positive: Normal Color, Dry, Pale Neurologic: positive: tube blower II-XII NML intact, Fully Oriented, Alert, Normal Mood/ Affect, Normal Response Progress Note - Progress Note Progress Note: Status post ultrasound on left leg deemed positive for left popliteal DVT. Patient was updated and taken to main emergency department for further evaluation and treatment, possible admission. Patient is currently asymptomatic although has tenderness and pain although mildly diminished after Tylenol. Dr. MARQUEZ given turnover *DC/Admit/Observation/Transfer Diagnosis at time of Disposition: H/O deep venous thrombosis - Discharge Dispostion Condition at time of disposition: Stable - Referrals Referrals: Bhavya Hernadez MD [Primary Care Provider] - - Patient Instructions - Post Discharge Activity
[2017-11-05] MEDS ORDERED: ACETAMINOPHEN 500 MG TABLET (FP) ONE (13:54)
--- NOTE | 2017-11-05 16:31 | PDOC ---
*Physical Exam - Vital Signs Last Vital Signs Temp Pulse Resp BP Pulse Ox 98.3 F 92 H 18 127/81 100 11/05/17 12:09 11/05/17 12:09 11/05/17 12:09 11/05/17 12:09 11/05/17 12:09 ED Treatment Course - LABORATORY CBC & Chemistry Diagram: 11/05/17 17:00 11/05/17 17:00 - Medications Given in the ED: ED Medications Discontinued Medications Generic Name Dose Route Start Last Admin Trade Name Fernando PRN Reason Stop Dose Admin Acetaminophen 1,000 mg 11/05/17 13:53 11/05/17 14:01 Tylenol - PO 11/05/17 13:54 1,000 mg ONCE ONE Administration Medical Decision Making - Medical Decision Making 11/05/17 16:30 32 F with confirmed DVT on US today. Spoke with Dr. Ann, who agrees to admit pt. Labs ordered. Will initiate lovenox for DVT tx. Case discussed in detail with admitting physician including history, physical exam and ancillary studies. Admitting physician has assumed care for the patient and will follow all pending diagnostics and complete the evaluation and treatment. *DC/Admit/Observation/Transfer Diagnosis at time of Disposition: H/O deep venous thrombosis, DVT (deep venous thrombosis) - Discharge Dispostion Condition at time of disposition: Stable Admit: Yes - Referrals - Patient Instructions - Post Discharge Activity - Attestations Physician Attestion: 11/05/17 16:31 I, Dr. José Capellan MD, attest that this document has been prepared under my direction and personally reviewed by me in its entirety. I further attest, that it accurately reflects all work, treatment, procedures and medical decision -making performed by me.
[2017-11-05] MEDS ORDERED: HEPARIN NA (PORCINE) 5,000 UNITS/ML 1ML VIAL IVPUSH PRN ×2 (16:32)
[2017-11-05] MEDS ORDERED: HEPARIN - 25,000 UNIT in SODIUM CHLORIDE 495 ML IV SCH (16:45)
[2017-11-05 17:11] LABS: EOSINOPHIL 4.3 % (0-4.5); MCH 26.2 pg (25.7-33.7); MCHC 32.3 g/dl (32.0-36.0); MEAN PLT VOLUME 7.6 fl (7.5-11.1); NEUTROPHILS 53.3 % (42.8-82.8); PLATELET COUNT 273 K/MM3 (134-434); RDW 15.9 % (11.6-15.6); WHITE BLOOD COUNT 8.5 K/mm3 (4.0-10.0)
[2017-11-05] MEDS ORDERED: ENOXAPARIN NA (PORCINE) 120 MG/0.8 ML DISP.SYRIN SQ SCH (17:30)
[2017-11-05] MEDS ORDERED: ENOXAPARIN NA (PORCINE) 60 MG/0.6 ML DISP.SYRIN SQ ONE (17:30)
[2017-11-05] MEDS ORDERED: ENOXAPARIN NA (PORCINE) 100 MG/1 ML DISP.SYRIN SQ ONE (17:30)
[2017-11-05 17:31] LABS: INR 1.28 (0.82-1.09); PROTHROMBIN TIME (PATIENT) 14.5 SEC (9.98-11.88)
[2017-11-05 17:34] LABS: ACTIVATED PTT 28.7 SECONDS (26.9-34.4)
[2017-11-05 17:41] LABS: ALBUMIN 3.3 g/dl (3.4-5.0); ANION GAP 7 (8-16); BILIRUBIN,TOTAL 0.6 mg/dL (0.2-1.0); CALCIUM 8.5 mg/dL (8.5-10.1); CO2 27 mmol/L (21-32); CREATININE 0.8 mg/dL (0.55-1.02); GLUCOSE,RANDOM 85 mg/dL (74-106); SGOT/AST 8 U/L (15-37); SGPT/ALT 13 U/L (12-78)
[2017-11-05 17:42] LABS: ALK PHOS 59 U/L (45-117)
[2017-11-05] MEDS ORDERED: oxyCODONE HCL 5 MG TABLET ONE (21:53)
[2017-11-06] MEDS ORDERED: oxyCODONE HCL 5 MG TABLET ONE (06:00)
[2017-11-06] MEDS ORDERED: ACETAMINOPHEN 325 MG TABLET (FP) ONE (06:01)
[2017-11-06] MEDS ORDERED: ACETAMINOPHEN 325 MG TABLET (FP) PO ONE (06:45)
[2017-11-06] MEDS ORDERED: oxyCODONE HCL 5 MG TABLET PO ONE (06:45)
--- NOTE | 2017-11-06 08:44 | HP ---
Admitting History and Physical - Primary Care Physician PCP: Bhavya Hernadez - Admission Chief Complaint: pain in left leg History of Present Illness: Patient sent by me to be evaluated for left lower extremity DVT. patient seen office yesterday for left lower extremity pain States has had history of left leg pain for to 3 weeks, was evaluated and discharged from the emergency room few weeks ago. DVT was ruled out at that time . Patient states has had persistent pain and came to see me in office today. Was recommended to come to the emergency department for further evaluation for possible DVT-- ultrasound in the emergency room confirmed a DVT in left lower extremity Patient given Lovenox and admitted to floor Patient has past medical history of right lower extremity DVT last year-- patient was on Lovenox for about 4 months--- now off the Lovenox this year. patient reports coogulation work done at that time was negative case was discussed with emergency room physician last night Patient seen today Chief complaint pain in the leg--still hurting Denies chest pain or shortness of breath Denies abdominal pain No headache or dizziness. 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) Cardiovascular: Yes: Deep Vein Thrombosis Musculoskeletal: Yes: Other - Past Surgical History Past Surgical History: Yes: Cholecystectomy - Smoking History Smoking history: Never smoked Have you smoked in the past 12 months: No Aproximately how many cigarettes per day: 0 - Alcohol/Substance Use Hx Alcohol Use: Yes (SOCIAL) - Social History ADL: Independent History of Recent Travel: No Home Medications - Allergies Allergies/Adverse Reactions: Allergies Allergy/AdvReac Type Severity Reaction Status Date / Time No Known Allergies Allergy Verified 11/05/17 12:08 - Home Medications Home Medications: Ambulatory Orders NK [No Known Home Medication] 05/23/17 Family Disease History - Family Disease History Family History: Unremarkable Review of Systems - Review of Systems Constitutional: reports: No Symptoms Eyes: reports: No Symptoms HENT: reports: No Symptoms Neck: reports: No Symptoms Cardiovascular: reports: No Symptoms Respiratory: reports: No Symptoms Gastrointestinal: reports: No Symptoms Integumentary: reports: No Symptoms Neurological: reports: No Symptoms Hematology/Lymphatic: reports: No Symptoms Psychiatric: reports: No Symptoms Pain Intensity: 8 Physical Examination Vital Signs: Vital Signs Temperature 97.7 F 11/06/17 07:01 Pulse Rate 87 11/06/17 07:01 Respiratory Rate 20 11/06/17 07:01 Blood Pressure 130/77 11/06/17 07:01 O2 Sat by Pulse Oximetry (%) 100 11/05/17 17:30 Constitutional: Yes: No Distress, Calm Eyes: Yes: Conjunctiva Clear Neck: Yes: Supple Cardiovascular: Yes: Regular Rate and Rhythm Respiratory: Yes: CTA Bilaterally Gastrointestinal: Yes: Normal Bowel Sounds, Soft Extremities: Yes: Calf Tenderness Edema: LLE: 1+, RLE: 1+ Peripheral Pulses WNL: Yes Neurological: Yes: Alert Psychiatric: Yes: Alert Labs: CBC, BMP 11/05/17 17:00 11/05/17 17:00 Imaging - Results Ultrasound: Report Reviewed Problem List - Problems (1) DVT (deep venous thrombosis) Code(s): I82.409 - ACUTE EMBOLISM AND THOMBOS UNSP DEEP VN UNSP LOWER EXTREMITY (2) H/O deep venous thrombosis Code(s): Z86.718 - PERSONAL HISTORY OF OTHER VENOUS THROMBOSIS AND EMBOLISM (3) Leg pain, left Code(s): M79.605 - PAIN IN LEFT LEG (4) Morbid obesity Code(s): E66.01 - MORBID (SEVERE) OBESITY DUE TO EXCESS CALORIES Assessment/Plan pain control Continue Lovenox Hematology consult--discussed with --will see patient. 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
[2017-11-06] MEDS: POLYETHYLENE GLYCOL 3350 119 GM BTL PO SCH (11:18)
[2017-11-06] MEDS: ENOXAPARIN NA (PORCINE) 120 MG/0.8 ML DISP.SYRIN SQ SCH ×4 (11:18→21:27)
[2017-11-06] MEDS: ENOXAPARIN NA (PORCINE) 30 MG/0.3 ML DISP.SYRIN SQ SCH ×2 (11:20→21:25)
[2017-11-06] MEDS: oxyCODONE HCL 5 MG TABLET PO PRN (12:49)
--- NOTE | 2017-11-06 14:28 | CONSULT ---
Consult Consult Specialty:: Hematoloy - History of Present Illness History of Present Illness: 30 y/o patient with RLE DVT, morbid obesity, had 2016 with RLE pain Duplex u/s shows popliteal and distal femoral DVT On lovenox 150mg SC bid was completed for about 4-6m. Now again admitted for DVT> Pt seen and examined. 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) Cardio/Vascular: Yes: Deep Vein Thrombosis Musculoskeletal: Yes: Other - Past Surgical History Past Surgical History: Yes: Cholecystectomy - Alcohol/Substance Use Hx Alcohol Use: Yes (SOCIAL) - Smoking History Smoking history: Never smoked Have you smoked in the past 12 months: No Aproximately how many cigarettes per day: 0 - Social History ADL: Independent History of Recent Travel: No Home Medications - Allergies Allergies/Adverse Reactions: Allergies Allergy/AdvReac Type Severity Reaction Status Date / Time No Known Allergies Allergy Verified 11/05/17 12:08 - Home Medications Home Medications: Ambulatory Orders NK [No Known Home Medication] 05/23/17 Physical Exam Vital Signs: Vital Signs Temperature 97.7 F 11/06/17 07:01 Pulse Rate 87 11/06/17 07:01 Respiratory Rate 20 11/06/17 07:01 Blood Pressure 130/77 11/06/17 07:01 O2 Sat by Pulse Oximetry (%) 100 11/05/17 17:30 Constitutional: Yes: Well Nourished, No Distress, Calm Eyes: Yes: Conjunctiva Clear HENT: Yes: Atraumatic, Normocephalic Neck: Yes: Supple, Trachea Midline Cardiovascular: Yes: Regular Rate and Rhythm Respiratory: Yes: Regular, CTA Bilaterally Gastrointestinal: Yes: Normal Bowel Sounds, Soft Edema: Yes (LLE>RLE) Neurological: Yes: Alert, Oriented Labs: CBC, BMP 11/05/17 17:00 11/05/17 17:00 Imaging - Results Ultrasound: Report Reviewed Problem List - Problems (1) DVT (deep venous thrombosis) Code(s): I82.409 - ACUTE EMBOLISM AND THOMBOS UNSP DEEP VN UNSP LOWER EXTREMITY (2) Morbid obesity Code(s): E66.01 - MORBID (SEVERE) OBESITY DUE TO EXCESS CALORIES (3) Dyspnea Code(s): R06.00 - DYSPNEA, UNSPECIFIED Qualifiers: Dyspnea type: unspecified Qualified Code(s): R06.00 - Dyspnea, unspecified (4) Leg pain, left Code(s): M79.605 - PAIN IN LEFT LEG Assessment/Plan Second episode of DVT. 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 (bridge for 4-5d) will follow-up the hypercoag w/u done in the office ( here PT gene mutation done , negative, APLS negative) Base line inr is around 1.2 d/w in detail with pt
[2017-11-06 15:13] VITALS: TEMP 98.2
[2017-11-06] MEDS ORDERED: WARFARIN NA 5 MG TABLET (UD) PO SCH (18:00)
[2017-11-06] MEDS ORDERED: ACETAMINOPHEN 325 MG TABLET (FP) PO PRN (18:19)
[2017-11-07] MEDS: oxyCODONE HCL 5 MG TABLET PO PRN (01:00)
[2017-11-07 08:39] LABS: MCH 25.9 pg (25.7-33.7); MEAN CELL VOLUME 80.9 fl (80-96); MEAN PLT VOLUME 8.1 fl (7.5-11.1); PLATELET COUNT 290 K/MM3 (134-434); RDW 15.8 % (11.6-15.6); WHITE BLOOD COUNT 8.1 K/mm3 (4.0-10.0)
--- NOTE | 2017-11-07 08:42 | DS ---
Physical Examination Vital Signs: Vital Signs Temperature 98.2 F 11/07/17 06:39 Pulse Rate 92 H 11/07/17 06:39 Respiratory Rate 17 11/07/17 06:39 Blood Pressure 134/55 11/07/17 06:39 O2 Sat by Pulse Oximetry (%) 97 11/06/17 21:00 Findings/Remarks: patient seen and examined Oncology consult noted On Lovenox and Coumadin Feels better Reports pain better with oxycodone Wants to go home. Denies chest pain or shortness of breath. Constitutional: Yes: No Distress, Calm Eyes: Yes: Conjunctiva Clear Neck: Yes: Supple Cardiovascular: Yes: Regular Rate and Rhythm Respiratory: Yes: CTA Bilaterally Gastrointestinal: Yes: Soft Edema: LLE: 2+ (left lower extremity) Peripheral Pulses WNL: Yes Neurological: Yes: Alert Psychiatric: Yes: Alert Labs: CBC, BMP 11/07/17 06:00 Discharge Summary Reason For Visit: DVT Current Active Problems DVT (deep venous thrombosis) (Acute) H/O deep venous thrombosis (Acute) Hospital Course: patient admitted for recurrent DVT. Currently on Coumadin and Lovenox Need bridging at least for 4-5 days Patient knows how to inject Lovenox Will discharge today on Lovenox and Coumadin strongly advised to follow up in office in one day Patient also to follow with oncologist . discussed in detail with the patient Patient in agreement Medications in to patient's pharmacy hcs looked discharge time--35 minutes in examining documenting and coordinating care. discussed with nursing staff also. Condition: Stable - Instructions Diet, Activity, Other Instructions: follow-up in office on Saturday Referrals: Bhavya Hernadez MD [Primary Care Provider] - Disposition: HOME - Home Medications Comprehensive Discharge Medication List: Ambulatory Orders Acetaminophen [Tylenol .Regular Strength -] 650 mg PO Q6H PRN tablet 11/07/17 Enoxaparin [Lovenox -] 150 mg SQ BID #8 disp.syrin MDD 2 11/07/17 Warfarin Na [Coumadin -] 5 mg PO DAILY@1800 #30 tablet 11/07/17
[2017-11-07 09:32] VITALS: BP 118/66; PULSE 90
[2017-11-07] MEDS: ENOXAPARIN NA (PORCINE) 30 MG/0.3 ML DISP.SYRIN SQ SCH (09:38)
[2017-11-07] MEDS: ENOXAPARIN NA (PORCINE) 120 MG/0.8 ML DISP.SYRIN SQ SCH (09:38)
[2017-11-07] MEDS: POLYETHYLENE GLYCOL 3350 119 GM BTL PO SCH (09:39)
[2017-11-07 09:44] LABS: ALBUMIN 2.9 g/dl (3.4-5.0); ALK PHOS 56 U/L (45-117); ANION GAP 10 (8-16); BILIRUBIN,TOTAL 0.6 mg/dL (0.2-1.0); CALCIUM 8.5 mg/dL (8.5-10.1); CO2 26 mmol/L (21-32); CREATININE 0.8 mg/dL (0.55-1.02); GLUCOSE,RANDOM 77 mg/dL (74-106); SGOT/AST 9 U/L (15-37); SGPT/ALT 12 U/L (12-78); TOT PROT 7.6 g/dl (6.4-8.2)
[2017-11-07 09:53] LABS: INR 1.33 (0.82-1.09)
== END 2017-11-07 11:54 | disposition home or self-care (01) | DRG 300 ==
LOC: JER 11:56 → JERFT 11:56 → JERBED 16:31 → J8W 19:06
PROVIDERS: ADMIT Internal Medicine; ATTEND Internal Medicine
DX: I82.432 Acute embolism and thrombosis of left popliteal vein (principal); Z68.43 Body mass index [BMI] 50.0-59.9, adult; E66.01 Morbid (severe) obesity due to excess calories; M79.605 Pain in left leg; R06.00 Dyspnea, unspecified; Z86.718 Personal history of other venous thrombosis and embolism; Z79.01 Long term (current) use of anticoagulants
CPT/HCPCS: 36415; 80053; 85025; 85027; 85610; 85730; 93971-TC; 99281-25

== ENCOUNTER 2019-03-04 11:52 | Emergency (ER) | payer OTHER ==
[2019-03-04 12:09] VITALS: BP 118/78; PULSE 111; TEMP 98.4; BMI 56.5
[2019-03-04] MEDS ORDERED: IBUPROFEN 600 MG TABLET (FP) PO ONE ×2 (12:48→12:51)
--- NOTE | 2019-03-04 13:21 | PDOC ---
History of Present Illness - General Chief Complaint: Cold Symptoms Stated Complaint: BODY ACHES/FEVER Time Seen by Provider: 03/04/19 12:35 History Source: Patient Exam Limitations: No Limitations - History of Present Illness Initial Comments: 03/04/19 13:13 33 y/o female presents to ED with c/o fver, sore throat, myalgia, cough, and chills since yesterday. Pt denies difficulty breathing, CP , abd pain, n/v/d, or urinary complaints. 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 Timing/Duration: reports: yesterday Severity: reports: moderate Possible Cause: Yes: no prior episodes Modifying Factors: improves with: coughing Associated Symptoms: reports: cough, fever/chills, sore throat Past History - Travel Traveled outside of the country in the last 30 days: No Close contact w/someone who was outside of country & ill: No - Past Medical History Allergies/Adverse Reactions: Allergies Allergy/AdvReac Type Severity Reaction Status Date / Time No Known Allergies Allergy Verified 02/28/18 19:09 Home Medications: Ambulatory Orders NK [No Known Home Medication] 03/04/19 Anemia: Yes COPD: No - Surgical History Cholecystectomy: Yes - Immunization History Td Vaccination: Yes - Suicide/Smoking/Psychosocial Hx Smoking Status: No Smoking History: Never smoked Have you smoked in the past 12 months: No Number of Cigarettes Smoked Daily: 0 Hx Alcohol Use: No Drug/Substance Use Hx: No Substance Use Type: None Hx Substance Use Treatment: No Patient Lives Alone: No Lives with/in: parents Review of Systems - Review of Systems Able to Perform ROS?: No Is the patient limited Latvian proficient: No Constitutional: Yes: Chills, Fever HEENTM: Yes: Throat Pain Respiratory: Yes: Cough Cardiac (ROS): No: Symptoms Reported ABD/GI: No: Symptoms Reported Musculoskeletal: Yes: Joint Pain, Muscle Pain Integumentary: No: Symptoms Reported Neurological: No: Symptoms reported Endocrine: No: Symptoms Reported Hematologic/Lymphatic: No: Symptoms Reported *Physical Exam - Vital Signs Last Vital Signs Temp Pulse Resp BP Pulse Ox 98.4 F 111 H 18 118/78 99 03/04/19 12:08 03/04/19 12:08 03/04/19 12:08 03/04/19 12:08 03/04/19 12:08 - Physical Exam General Appearance: Yes: Nourished, Appropriately Dressed. No: Apparent Distress HEENT: positive: EOMI, FRED, TMs Normal, Pharyngeal Erythema (3 + saroj), Tonsillar Exudate Neck: positive: Supple. negative: Lymphadenopathy (R), Lymphadenopathy (L) Respiratory/Chest: positive: Lungs Clear, Normal Breath Sounds. negative: Respiratory Distress, Accessory Muscle Use Cardiovascular: positive: Regular Rhythm, Tachycardia. negative: Murmur Gastrointestinal/Abdominal: positive: Soft. negative: Tenderness Musculoskeletal: negative: CVA Tenderness Extremity: positive: Normal Capillary Refill Integumentary: positive: Normal Color, Warm, Moist Neurologic: positive: Motor Strength 5/5 (ambulatory) ED Treatment Course - Medications Given in the ED: ED Medications Discontinued Medications Generic Name Dose Route Start Last Admin Trade Name Freq PRN Reason Stop Dose Admin Ibuprofen 600 mg 03/04/19 12:48 03/04/19 12:56 Motrin - PO 03/04/19 12:49 600 mg ONCE ONE Administration Medical Decision Making - Medical Decision Making 03/04/19 13:24 CC: fever, cough chills, sore throat and myalgia since yesterday. no smoking hx Exam: tachy, noted shivering, tonsillar exudate to 3+ tonsills, Plan: motrin, strep, and influenza 03/04/19 13:25 Laboratory Tests 03/04/19 03/04/19 12:50 12:50 Influenza A (Rapid) Negative Influenza B (Rapid) Negative Group A Strep Rapid Negative 03/04/19 13:31 Pt will be given rx for motrin and tamiflu(despite - influenza) due to HPI and PE *DC/Admit/Observation/Transfer Diagnosis at time of Disposition: Viral upper respiratory illness - Discharge Dispostion Disposition: HOME Condition at time of disposition: Improved - Referrals - Patient Instructions Printed Discharge Instructions: DI for Viral Upper Respiratory Infection -- Adult Additional Instructions: Please take medication as prescribed. Rest and drink plenty of fluids for the next 48 hours - Post Discharge Activity Forms/Work/School Notes: Back to Work
== END 2019-03-04 13:40 | disposition home or self-care (01) ==
LOC: JERFT 11:52
DX: J06.9 Acute upper respiratory infection, unspecified (principal)
CPT/HCPCS: 87070; 87804; 87880; 99281-25

== ENCOUNTER 2021-12-12 12:25 | Emergency (ER) | payer OTHER ==
[2021-12-12 12:34] VITALS: BP 129/84; PULSE 97; TEMP 97.7; BMI 65.2
== END 2021-12-12 15:00 | disposition home or self-care (01) ==
LOC: JER 12:25
DX: U07.1 COVID-19 (principal)
CPT/HCPCS: 71046-TC-FY; 99283-25